=== PATIENT | male | born 1995 | race Caucasian/White ===

== ENCOUNTER 2017-05-12 12:41 | Emergency (ER) | payer BC ==
[2017-05-12 13:14] VITALS: BP 130/70; PULSE 59; RESP 18; TEMP 96.3
[2017-05-12] MEDS ORDERED: DIPH,PERTUS(ACELL)TETVAC-LF 0.5 ML VIAL IM ONE (13:17)
--- NOTE | 2017-05-12 13:20 | ED ---
General Adult HPI - General Chief complaint: Wound/Laceration Stated complaint: Finger Lac Time Seen by Provider: 05/12/17 13:12 Source: patient, RN notes reviewed Mode of arrival: ambulatory Limitations: no limitations - History of Present Illness Initial comments: 22-year-old male presents emergency department chief complaint of left index finger laceration. Patient cut it with a steam box operator today. He states his tetanus was 7 years ago. He denies any other injuries from the incident. He denies any difficulty movement of that finger. He states he just noticed the cut so he thought that he should be seen. They were concerned due to the depth of the cut and thought it might require stitches. Patient states that he is not currently having any other symptoms.Patient denies any recent fever, chills , shortness of breath, chest pain, back pain, abdominal pain, nausea vomiting, numbness or tingling, dysuria or hematuria, constipation or diarrhea, headaches or visual changes, or any other current symptoms. - Related Data Allergies Allergy/AdvReac Type Severity Reaction Status Date / Time No Known Allergies Allergy Verified 05/12/17 13:14 Review of Systems ROS Statement: Those systems with pertinent positive or pertinent negative responses have been documented in the HPI. ROS Other: All systems not noted in ROS Statement are negative. Past Medical History Past Medical History: No Reported History History of Any Multi-Drug Resistant Organisms: None Reported Past Surgical History: No Surgical Hx Reported Past Psychological History: No Psychological Hx Reported Smoking Status: Never smoker Past Alcohol Use History: None Reported Past Drug Use History: None Reported General Exam - General Exam Comments Initial Comments: General: The patient is awake and alert, in no distress, and does not appear acutely ill. Neck: The neck is supple, there is no tenderness. Cardiovascular: There is a regular rate and rhythm. No murmur, rub or gallop is appreciated. Respiratory: Lungs are clear to auscultation, respirations are non-labored, breath sounds are equal. No wheezes, stridor, rales, or rhonchi. Musculoskeletal: Sensation intact with 2+ pulses of left upper x-ray. Fund motion of left wrist and left hand. Patient does appear to have a laceration to the distal aspect of the left index finger with 5 out of 5 muscle strength testing in full range of motion. Neurological: CN II-XII intact, There are no obvious motor or sensory deficits. Coordination appears grossly intact. Speech is normal. Skin: Skin is warm and dry and no rashes or lesions are noted. Psychiatric: Normal mood and affect. Limitations: no limitations Course Vital Signs 05/12/17 13:12 Temperature 96.3 F L Pulse Rate 59 L Respiratory 18 Rate Blood Pressure 130/70 O2 Sat by Pulse 100 Oximetry Procedures - Procedures Initial comment: The skin was anesthetized with 1% lidocaine. The laceration was then cleansed with Betadine and irrigated with normal saline. The wound was inspected, and there was no evidence of injury to deep structures. No foreign body was noted in the wound. A total of 3 skin sutures were placed utilizing 5-0 nylon, 2 cm laceration to the distal aspect of left index finger Medical Decision Making - Medical Decision Making 22-year-old male presents for left index finger laceration. This time patient went suture care. We discussed follow-up with discussed return parameters all questions. Patient stated that he understood any significant plan. All questions have been answered. He will be discharged. - Radiology Data Radiology results: report reviewed, image reviewed Interpreted by me: no point tenderness at area of concern Disposition Clinical Impression: Laceration of left index finger w/o foreign body w/o damage to nail Disposition: HOME SELF-CARE Condition: Stable Instructions: Care For Your Stitches (ED), Laceration (ED) Additional Instructions: Please use medication as discussed. Please follow up with family doctor if symptoms have not improved over the next two days. Please return to the emergency room if your symptoms increase or worsen or for any other concerns. Please return to the emergency room in 8-10 days to have sutures removed. Please leave wound covered for the first 24-48 hours and then leave open to air after that time. Please use clean soap and water to clean the suture area to prevent scabbing over the top of your sutures. Please watch for any signs of infection which may include but not limited to increased pain, swelling, redness , fever or chills. Please return to the emergency room if any signs of infection do occur. Please return to the emergency room for any other concerns or complications. Referrals: Riri Aparicio MD [REFERRING] - 1-2 days Time of Disposition: 13:48
--- NOTE | 2017-05-12 13:40 | XR ---
EXAMINATION TYPE: XR finger LT DATE OF EXAM: 05/12/2017 COMPARISON: NONE HISTORY: Pain TECHNIQUE: Three views are submitted. FINDINGS: Joint spaces are preserved. On the lateral view is a thin linear lucency near the volar plate of the middle phalanx. IMPRESSION: 1. Correlate clinically with point tenderness to exclude a hairline nondisplaced volar plate fracture base middle phalanx second digit
== END 2017-05-12 13:55 | disposition home or self-care (01) ==
LOC: EC 12:41
DX: S61.211A Laceration without foreign body of left index finger without damage to nail, initial encounter (principal); Z53.20 Procedure and treatment not carried out because of patient's decision for unspecified reasons; W45.8XXA Other foreign body or object entering through skin, initial encounter; Y93.89 Activity, other specified; Y92.009 Unspecified place in unspecified non-institutional (private) residence as the place of occurrence of the external cause
CPT/HCPCS: 12001; 99283